=== PATIENT | female | born 1995 | race African-American/Black ===

== ENCOUNTER 2022-11-25 23:31 | Emergency (ER) | payer SELFPAY ==
[2022-11-26] MEDS ORDERED: Bacitracin 1 PK ONE (00:32)
== END 2022-11-26 02:49 | disposition left against medical advice (07) ==
LOC: CSHERS 23:31
DX: S90.414A Abrasion, right lesser toe(s), initial encounter (principal); F10.129 Alcohol abuse with intoxication, unspecified; X58.XXXA Exposure to other specified factors, initial encounter
CPT/HCPCS: 99284